=== PATIENT | female | born 1970 | race Caucasian/White ===

== ENCOUNTER 2017-05-27 21:42 | Emergency (ER) | payer BC, MEDICAID ==
[2017-05-27] MEDS: KETOROLAC 30 MG INJ IM (22:39)
== END 2017-05-27 23:35 | disposition home or self-care (01) ==
LOC: FTE 21:42
DX: M25.50 Pain in unspecified joint (principal); R05 Cough
CPT/HCPCS: 81025; 96372; 99284-25

== ENCOUNTER 2017-07-21 08:34 | Day surgery (SDC) | payer BC ==
[~2017-07-21 08:34] MED LIST: CEFAZOLIN 1 GM/50 ML (PMX) 50 ML IVPB; SOD CHLORIDE 0.9% 1,000 ML IV
[2017-07-21 09:56] LABS: ADD MAN DIFF? NO
[2017-07-21] MEDS ORDERED: OXYCODONE/ACETAMINOPHEN (5/325) TAB PO (10:00)
[2017-07-21 10:02] LABS: WHITE BLOOD COUNT 7.5 10^3/ul (4.8-10.8)
[2017-07-21 10:02] LABS: BASOPHILS % 0.4 % (0.0-2.0); EOSINOPHILS # 0.2 10^3/ul (0.0-0.5); EOSINOPHILS % 2.7 % (0.0-7.0); HEMATOCRIT 33.7 % (37.0-47.0); HEMOGLOBIN 10.6 g/dl (12.0-16.0); LYMPHOCYTES # 1.4 10^3/ul (0.8-2.9); LYMPHOCYTES % 18.9 % (15.0-51.0); MEAN CORPUSCULAR HEMOGLOBIN 24.5 pg (29.0-33.0); MEAN CORPUSCULAR HGB CONC 31.5 g/dl (32.0-37.0); MEAN PLATELET VOLUME 10.6 fl (7.4-10.4); MONOCYTE # 0.5 10^3/ul (0.3-0.9); MONOCYTES % 6.3 % (0.0-11.0); NEUTROPHIL # 5.3 10^3/ul (1.6-7.5); NEUTROPHILS % 71.4 % (39.0-77.0); PLATELET COUNT 270 10^3/UL (140-415); RED BLOOD COUNT 4.32 10^6/ul (4.20-5.40); RED CELL DISTRIBUTION WIDTH 12.7 % (11.5-14.5)
[2017-07-21] MEDS ORDERED: ROCURONIUM 50 MG INJ (10:09)
[2017-07-21] MEDS ORDERED: FENTAnyl 50 MCG/ML VIAL (10:09)
[2017-07-21] MEDS ORDERED: MIDAZOLAM 1 MG/ML 2 ML INJ (10:09)
[2017-07-21] MEDS ORDERED: ONDANSETRON 4 MG INJ ×2 (10:09→12:08)
[2017-07-21] MEDS ORDERED: DEXAMETHASONE 4 MG/ML 1 ML INJ (10:09)
[2017-07-21] MEDS ORDERED: NEOSTIGMINE 3 MG/3 ML SYRINGE (10:09)
[2017-07-21] MEDS ORDERED: GLYCOPYRROLATE 0.4 MG INJ (10:09)
[2017-07-21] MEDS ORDERED: CEFAZOLIN 1 GM INJ (10:09)
[2017-07-21] MEDS ORDERED: PROPOFOL 20 ML (10:09)
[2017-07-21 10:32] LABS: ALANINE AMINOTRANSFERASE 19 IU/L (13-69); ALBUMIN 3.9 g/dl (3.3-4.9); ALBUMIN/GLOBULIN RATIO 1.21; ALKALINE PHOSPHATASE 69 IU/L (42-121); ANION GAP 12 (8-16); ASPARTATE AMINO TRANSFERASE 18 IU/L (15-46); BILIRUBIN,INDIRECT 0.2 mg/dl (0-1.1); BILIRUBIN,TOTAL 0.2 mg/dl (0.2-1.3); CARBON DIOXIDE 24 mmol/L (21-31); CHLORIDE 111 mmol/L (97-110); GLUCOSE 97 mg/dl (70-220); INR 0.96; PROTIME 12.9 Sec (11.9-14.9); TOTAL PROTEIN 7.1 g/dl (6.1-8.1)
[2017-07-21 10:36] LABS: BLOOD UREA NITROGEN 13 mg/dl (7-20); CALCIUM 9.8 mg/dl (8.4-10.2); CREATININE 0.66 mg/dl (0.44-1.00); POTASSIUM 3.9 mmol/L (3.5-5.1); SODIUM 143 mmol/L (135-144)
[2017-07-21 10:53] LABS: PARTIAL THROMBOPLASTIN TIME 35.8 Sec (25.0-35.0)
[2017-07-21] MEDS: BUPIVACAINE 0.5%/EPI (SDV) 30 ML INJ (11:02)
[2017-07-21] MEDS: OXYCODONE/ACETAMINOPHEN (5/325) TAB PO (11:47)
[2017-07-21] MEDS ORDERED: MEPERIDINE 25 MG INJ (12:08)
[2017-07-21] MEDS: MEPERIDINE 25 MG INJ IV (12:11)
[2017-07-21] MEDS: ONDANSETRON 4 MG INJ IV (12:11)
== END 2017-07-21 14:45 | disposition home or self-care (01) ==
LOC: SDS 08:34
DX: K64.4 Residual hemorrhoidal skin tags (principal); K64.8 Other hemorrhoids; E03.9 Hypothyroidism, unspecified
CPT/HCPCS: 46260; 80053; 85025; 85610; 85730; 88104; 88304

== ENCOUNTER 2018-03-05 08:28 | Emergency (ER) | payer BC | END 2018-03-05 10:49 | disposition home or self-care (01) | LOC: FTE 08:28 | DX: J18.9 Pneumonia, unspecified organism (principal) | CPT/HCPCS: 71045; 71250; 99284-25 ==